=== PATIENT | male | born 1955 | race Caucasian/White ===

== ENCOUNTER 2022-02-12 08:23 | Outpatient (CLI) | payer BC, SELFPAY ==
--- NOTE | 2022-02-13 12:32 | WPDHOLTEREM ---
Holter/Event Monitor Holter/Event Monitor Date of procedure: 02/12/22 Holter/Event Procedure: 24 Hr Holter Monitor Indications: Bradycardia Conclusion: 1. 24 hour holter monitor on 02/12/22. 2. Underlying rhythm is sinus rhythm. HR range 44-84 bpm; average HR 58 bpm. HR at 44 bpm was at 05:13. 3. There are 15 premature supraventricular complexes. No supraventricular tachycardia. 4. There are 368 premature ventricular complexes, 7 ventricular bigeminy and 3 ventricular trigeminy. No ventricular tachycardia. 5. No sinoatrial or atrioventricular blocks. No significant pauses greater than 2 seconds. 6. No symptoms available for correlation.
== END 2022-02-12 08:24 | disposition home or self-care (01) ==
LOC: CHSCARD 08:31
PROVIDERS: PCP Family Medicine; Visit Provider Family Medicine
DX: I48.91 Unspecified atrial fibrillation (principal)
CPT/HCPCS: 93225; 93226